=== PATIENT | female | born 1990 | race Caucasian/White ===

== ENCOUNTER 2017-02-19 16:38 | Emergency (ER) | payer MEDICAID ==
[2017-02-19 16:58] VITALS: TEMP 97.8
--- NOTE | 2017-02-19 17:25 | ED ---
Female Urogenital HPI - General Chief complaint: Urogenital Stated complaint: Cyst Time Seen by Provider: 02/19/17 17:04 Source: patient, RN notes reviewed Mode of arrival: ambulatory Limitations: no limitations - History of Present Illness Initial comments: Patient is a 26-year-old female presents to the emergency room for evaluation. Patient states she noticed a small cyst forming over her right labia on Monday. Patient states the swelling and pain got worse over the weekend. Patient states she went to [facility] she was sent here to have the area drained. Patient does states she has a history of abscesses. Patient denies any history of MRSA. Patient does state that she has been on clindamycin since Monday for strep throat. Patient states she's having 10 out of 10 pain at the area. Patient denies any drainage. Patient denies any history of Bartholin's cyst. Patient denies fevers or chills. - Related Data Home Medications Medication Instructions Recorded Confirmed Dextroamphetamine/Amphetamine 10 mg PO DAILY 02/19/17 02/19/17 [Adderall] Previous Rx's Medication Instructions Recorded HYDROcodone/APAP 5-325MG [Liberty 1 tab PO Q6HR PRN #12 tab 02/19/17 5-325] Allergies Allergy/AdvReac Type Severity Reaction Status Date / Time cephalexin monohydrate Allergy Rash/Hives Verified 02/19/17 17:03 [From Keflex] clarithromycin [From Biaxin] Allergy Rash/Hives Verified 02/19/17 17:03 sulfamethoxazole Allergy Rash/Hives Verified 02/19/17 17:03 [From Bactrim] trimethoprim [From Bactrim] Allergy Rash/Hives Verified 02/19/17 17:03 Review of Systems ROS Statement: Those systems with pertinent positive or pertinent negative responses have been documented in the HPI. ROS Other: All systems not noted in ROS Statement are negative. Past Medical History Additional Past Medical History / Comment(s): hx of Desmoid tumor. bronchitis, INSOMNIA History of Any Multi-Drug Resistant Organisms: None Reported Additional Past Surgical History / Comment(s): Desmoid tumor removed from R axilla area, Epidermoid cysts removed from face, neck and tailbone. Past Anesthesia/Blood Transfusion Reactions: No Reported Reaction Past Psychological History: No Psychological Hx Reported Smoking Status: Never smoker Past Alcohol Use History: None Reported Past Drug Use History: None Reported - Past Family History Mother Family Medical History: No Reported History General Exam - General Exam Comments Initial Comments: Sitting in exam room, no acute distress. Limitations: no limitations General appearance: alert, in no apparent distress Head exam: Present: atraumatic, normocephalic, normal inspection Eye exam: Present: normal appearance ENT exam: Present: normal exam Neck exam: Present: normal inspection Respiratory exam: Absent: respiratory distress External exam: Present: other (bartholin cyst over right labia minora ) Extremities exam: Present: normal inspection Back exam: Present: normal inspection Neurological exam: Present: alert, oriented X3, CN II-XII intact, normal gait Psychiatric exam: Present: normal affect, normal mood Course Vital Signs 02/19/17 16:56 Temperature 97.8 F Pulse Rate 89 Respiratory 20 Rate Blood Pressure 135/91 O2 Sat by Pulse 100 Oximetry Procedures - Incision & Drainage Consent Obtained: verbal consent Site: other (right labia minora) Size (cm): 2 Anesthetic Used: lidocaine 1% Amount (mLs): 4 I&D Cleaning Method: Betadine Sterile Field Used?: No Scalpel Used: #11 I&D Drainage Obtained: Pus, Blood Patient Tolerated Procedure: well, no complications Medical Decision Making - Medical Decision Making Patient is a 26-year-old female presents to the emergency room for evaluation of Bartholin's cyst. Cyst was incised and drained. No complications during procedure. Advised patient to follow up with POULTICE MACHINE OPERATOR. Patient will be sent home with pain medications. Patient is already on clindamycin. Patient states she understands everything that was discussed with her. Return parameters discussed. Disposition Clinical Impression: Bartholin cyst Disposition: HOME SELF-CARE Condition: Good Instructions: Bartholin Cyst (ED) Additional Instructions: Warm sits baths. Take ibuprofen as needed for pain. Take Liberty as needed for severe pain. Please follow-up with POULTICE MACHINE OPERATOR in 24 hours. If any new symptom arises or symptoms worsen, return to ER as soon as possible. Prescriptions: HYDROcodone/APAP 5-325MG [Liberty 5-325] 1 tab PO Q6HR PRN #12 tab PRN Reason: Pain Referrals: Tayla Perdomo MD [Primary Care Provider] - 1-2 days Time of Disposition: 17:45
[2017-02-19 17:51] VITALS: BP 134/77; PULSE 95; RESP 18
== END 2017-02-19 17:51 | disposition home or self-care (01) ==
LOC: EC 16:38
DX: N75.0 Cyst of Bartholin's gland (principal); Z88.2 Allergy status to sulfonamides; Z88.1 Allergy status to other antibiotic agents; Z79.899 Other long term (current) drug therapy
CPT/HCPCS: 56420; 99282

== ENCOUNTER → 2017-05-26 | Outpatient (CLI) | payer MEDICAID ==
[2017-05-26 21:15] LABS: Basophils % (A) 1 %; CH 27.8; Eosinophils # (A) 0.1 k/uL (0-0.7); Eosinophils % (A) 2 %; HCT 40.4 % (34.0-46.0); HDW 2.48; HGB 12.8 gm/dL (11.4-16.0); Luc # (Auto) 0.12; Luc % (Auto) 2; Lymphocytes # (A) 1.7 k/uL (1.0-4.8); Lymphocytes % (A) 30 %; MCH 27.6 pg (25.0-35.0); MCHC 31.6 g/dL (31.0-37.0); MCV 87.4 fL (80.0-100.0); Mean Platelet Volume 7.8; Monocytes # (A) 0.3 k/uL (0-1.0); Monocytes % (A) 5 %; Neutrophils # (A) 3.5 k/uL (1.3-7.7); Neutrophils % (A) 61 %; RBC 4.62 m/uL (3.80-5.40); RDW 13.2 % (11.5-15.5); WBC 5.8 k/uL (3.8-10.6); WBC (Perox) 5.98
[2017-05-26 21:19] LABS: ALT 23 U/L (9-52); AST 31 U/L (14-36); Alkaline Phosphatase 78 U/L (38-126); Anion Gap 9 mmol/L; Blood Urea Nitrogen 7 mg/dL (7-17); Calcium 9.1 mg/dL (8.4-10.2); Carbon Dioxide 22 mmol/L (22-30); Chloride 108 mmol/L (98-107); Cholesterol 182 mg/dL (<200); Glucose 91 mg/dL (74-99); HDL Cholesterol 71 mg/dL (40-60); Non-African American GFR(MDRD) >60 (>60 ml/min/1.73 sqM); Potassium 4.3 mmol/L (3.5-5.1); Sodium 139 mmol/L (137-145); Total Bilirubin 0.6 mg/dL (0.2-1.3); Total Protein 6.6 g/dL (6.3-8.2)
[2017-05-26 22:05] LABS: Vitamin B12 389 pg/mL (239-931)
== END | disposition home or self-care (01) ==
LOC: MMGSC 10:26
PROVIDERS: ATTEND Family Medicine
DX: Z00.00 Encounter for general adult medical examination without abnormal findings (principal); R53.83 Other fatigue
CPT/HCPCS: 36415; 80053; 80061; 82306; 82607; 84439; 84443; 85025

== ENCOUNTER → 2018-09-19 | Outpatient (CLI) | payer MEDICAID ==
[2018-09-19 16:33] LABS: Basophils % (A) 1 %; Eosinophils # (A) 0.1 k/uL (0-0.7); Eosinophils % (A) 2 %; HCT 39.9 % (34.0-46.0); Lymphocytes # (A) 1.3 k/uL (1.0-4.8); Lymphocytes % (A) 28 %; MCH 28.3 pg (25.0-35.0); MCHC 32.6 g/dL (31.0-37.0); MCV 86.7 fL (80.0-100.0); Mean Platelet Volume 6.9; Monocytes # (A) 0.4 k/uL (0-1.0); Monocytes % (A) 8 %; Neutrophils # (A) 2.7 k/uL (1.3-7.7); Neutrophils % (A) 59 %; Platelet Count 303 k/uL (150-450); RDW 13.6 % (11.5-15.5); WBC 4.7 k/uL (3.8-10.6)
== END | disposition home or self-care (01) ==
LOC: LABPAT 15:24
PROVIDERS: ATTEND Obstetrics & Gynecology
DX: Z01.812 Encounter for preprocedural laboratory examination (principal)
CPT/HCPCS: 36415; 85025

== ENCOUNTER 2018-10-04 06:53 | Day surgery (SDC) | payer MEDICAID ==
[2018-10-03 09:21] VITALS: BMI 36.6
--- NOTE | 2018-10-04 06:35 | P.HPOB ---
History of Present Illness H&P Date: 10/04/18 Chief Complaint: recurrent bartholin gland cyst 28 year old G0 presents for marsupialization of bartholin cyst that keeps filling with pus. I have drained it in the office 3 times. Review of Systems All systems: negative Constitutional: Denies chills, Denies fever Eyes: denies blurred vision, denies pain Ears, nose, mouth and throat: Denies headache, Denies sore throat Cardiovascular: Denies chest pain, Denies shortness of breath Respiratory: Denies cough Gastrointestinal: Denies abdominal pain, Denies diarrhea, Denies nausea, Denies vomiting Genitourinary: Denies dysuria, Denies hematuria Musculoskeletal: Denies myalgias Integumentary: Denies pruritus, Denies rash Neurological: Denies numbness, Denies weakness Psychiatric: Denies anxiety, Denies depression Endocrine: Denies fatigue, Denies weight change Past Medical History Additional Past Medical History / Comment(s): BARTHOLIN CYST, 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 History of Any Multi-Drug Resistant Organisms: None Reported Additional Past Surgical History / Comment(s): Desmoid tumor removed from R axilla area, Epidermoid cysts removed from face, neck and tailbone. Past Anesthesia/Blood Transfusion Reactions: No Reported Reaction Past Psychological History: No Psychological Hx Reported Smoking Status: Never smoker Past Alcohol Use History: None Reported Past Drug Use History: None Reported - Past Family History Mother Family Medical History: No Reported History Medications and Allergies Home Medications Medication Instructions Recorded Confirmed Type Dextroamphetamine/Amphetamine 15 mg PO DAILY 10/03/18 10/03/18 History [Adderall] Zylet 1 drop LEFT EYE BID 10/03/18 History clonazePAM [KlonoPIN] 0.5 mg PO DAILY PRN 10/03/18 10/03/18 History metFORMIN HCL [Glucophage] 500 mg PO DAILY 10/03/18 10/03/18 History Allergies Allergy/AdvReac Type Severity Reaction Status Date / Time cephalexin monohydrate Allergy Rash/Hives Verified 10/03/18 09:15 [From Keflex] clarithromycin [From Biaxin] Allergy Rash/Hives Verified 10/03/18 09:15 sulfamethoxazole Allergy Rash/Hives Verified 10/03/18 09:15 [From Bactrim] trimethoprim [From Bactrim] Allergy Rash/Hives Verified 10/03/18 09:15 Exam Osteopathic Statement: *. No significant issues noted on an osteopathic structural exam other than those noted in the History and Physical/Consult. Intake and Output 10/03/18 10/03/18 10/04/18 14:59 22:59 06:59 Other: Weight 90.718 kg Heart: RRR Lungs: CTAB Abdomen: soft, nontender Extremeties: neg rose's Assessment and Plan (1) Bartholin gland cyst Status: Acute Code(s): N75.0 - CYST OF BARTHOLIN'S GLAND SNOMED Code(s): 12751154 Plan: 1. marsupialization of bartholin gland cyst
[~2018-10-04 06:53] MED LIST: CLINDAMYCIN 900 MG in DEXTROSE 5% IN WATER 50 ML IVPB ONE; DEXAMETHASONE SOD PHOSPHATE 10 MG/ML 1 ML VIAL IV ONE; GENTAMICIN 330 MG in SODIUM CHLORIDE 0.9% 100 ML IVPB ONE; LACTATED RINGERS 1,000 ML IV SCH; LIDOCAINE 1% 20 ML VIAL (10MG/ML) FOR IV START INTRADERMA PRN; MIDAZOLAM (PF) 2 MG/2 ML VIAL IV PRN; ONDANSETRON 4 MG/2 ML VIAL IVP ONE
[2018-10-04 07:28] LABS: Glucose,Whole Blood 100 mg/dL (75-99)
[2018-10-04] MEDS ORDERED: PROPOFOL 10 MG/ML 20 ML VIAL IV ONE (07:54)
[2018-10-04] MEDS ORDERED: MIDAZOLAM 2 MG/2 ML VIAL ONE (07:54)
[2018-10-04] MEDS ORDERED: KETOROLAC 30 MG/ML 1 ML VIAL ONE (07:54)
[2018-10-04] MEDS ORDERED: fentaNYL (PF) 50 MCG/ML 2 ML AMP ONE (07:54)
[2018-10-04] MEDS ORDERED: LIDOCAINE 1% INJ 10MG/ML (20 ML MDV) ONE (07:54)
[2018-10-04] MEDS ORDERED: LIDOCAINE 1%-EPI 1:100,000 20 ML VIAL SUBMUCOSAL ONE ×2 (08:17)
--- NOTE | 2018-10-04 08:44 | P.OP ---
Date of Procedure: 10/04/18 Preoperative Diagnosis: 1. Recurrent Bartholin gland cyst Postoperative Diagnosis: 1. Same Procedure(s) Performed: Marsupialization of a Bartholin's gland cyst Anesthesia: MAC Surgeon: Joceline Gant Estimated Blood Loss (ml): 2 IV fluids (ml): 200 Pathology: other (Part of cyst wall from right labia) Condition: stable Disposition: PACU Operative Findings: Very small cyst in the right labia Description of Procedure: Patient is taken the operating room where general anesthesia was obtained without difficulty. She is prepped and draped in normal sterile fashion in dorsal lithotomy position, legs placed in candycane stirrups. The area of the cyst was found by noting the puncture shane from the previous times and I have drain the cyst. It is not actively inflamed. 1% lidocaine with epinephrine was injected just beneath the epidermis. A 15 blade was used to make a small incision on the right labia. The cyst was seen and opened with scalpel and a hemostat. A piece of the cyst wall was taken with Metzenbaums. The cyst wall was sewn open to the edges of the epidermis with 3-0 Vicryl interrupted stitches. Patient tolerated procedure well, sponge and instrument counts correct 2. She is taken to recovery in stable condition.
[2018-10-04] MEDS: fentaNYL (PF) 50 MCG/ML 2 ML AMP IV PRN ×2 (08:52→09:05)
[2018-10-04 08:58] VITALS: TEMP 97.4
[2018-10-04 09:05] VITALS: PULSE 81
[2018-10-04 09:49] VITALS: BP 114/74; RESP 16
== END 2018-10-04 10:19 | disposition home or self-care (01) ==
LOC: OR 06:53
PROVIDERS: ATTEND Obstetrics & Gynecology
DX: N75.0 Cyst of Bartholin's gland (principal); E28.2 Polycystic ovarian syndrome; F39 Unspecified mood [affective] disorder; Z79.84 Long term (current) use of oral hypoglycemic drugs; Z79.899 Other long term (current) drug therapy; Z88.1 Allergy status to other antibiotic agents; Z88.2 Allergy status to sulfonamides
CPT/HCPCS: 81025; 88304; 56440; J2250; J1100; J2405; J2001; J3010; J1885; J1580; J2704

== ENCOUNTER → 2018-12-17 | Outpatient (CLI) | payer MEDICAID ==
[2018-12-17 17:50] LABS: RNP 0.4 AI; Scleroderma SC-70 Ab <0.2 AI
== END | disposition home or self-care (01) ==
LOC: LABWHC1 10:35
DX: Z12.89 Encounter for screening for malignant neoplasm of other sites (principal); Z80.8 Family history of malignant neoplasm of other organs or systems
CPT/HCPCS: 36415; 82085; 82550; 86235

== ENCOUNTER → 2019-01-01 | Outpatient (CLI) | payer MEDICAID | LOC: LABWHC1 14:30 | PROVIDERS: ATTEND Dermatology | DX: Z80.8 Family history of malignant neoplasm of other organs or systems (principal) | CPT/HCPCS: 36415 ==

== ENCOUNTER → 2019-01-18 | Outpatient (CLI) | payer MEDICAID ==
[2019-01-18 15:03] LABS: HCT 39.4 % (34.0-46.0); HGB 12.5 gm/dL (11.4-16.0); MCH 27.6 pg (25.0-35.0); MCHC 31.7 g/dL (31.0-37.0); MCV 87.1 fL (80.0-100.0); Mean Platelet Volume 7.1; Platelet Count 308 k/uL (150-450); RBC 4.53 m/uL (3.80-5.40); RDW 14.9 % (11.5-15.5); WBC 7.7 k/uL (3.8-10.6)
[2019-01-18 18:53] LABS: Albumin 3.8 g/dL (3.80-4.90); Anion Gap 5.8 mmol/L (4.00-12.00); Calcium 8.9 mg/dL (8.7-10.3); Carbon Dioxide 25.2 mmol/L (21.6-31.8); Globulin 1.9 g/dL (1.6-3.3); Potassium 3.9 mmol/L (3.5-5.5); Total Bilirubin 0.4 mg/dL (0.2-1.2); Total Protein 5.7 g/dL (6.2-8.2)
== END | disposition home or self-care (01) ==
LOC: LABWHC1 14:36
PROVIDERS: ATTEND Dermatology
DX: M33.90 Dermatopolymyositis, unspecified, organ involvement unspecified (principal)
CPT/HCPCS: 36415; 80053; 82955; 85027

== ENCOUNTER → 2019-04-10 | Outpatient (CLI) | payer MEDICAID ==
[2019-04-10 23:28] LABS: Cardiolipin Ab IgG Interp NEGATIVE (NEGATIVE); Cardiolipin Ab IgM Interp NEGATIVE (NEGATIVE); Cardiolipin IgA Antibody <0.5 U/mL; Cardiolipin IgM Antibody 1.3 U/mL
[2019-04-10 23:39] LABS: Hepatitis C IgG Antibody Non-Reactive (Non-Reactive)
[2019-04-11 01:20] LABS: Protein, Total 6.2 g/dL (6.2-8.2)
[2019-04-11 01:42] LABS: Amylase 65 U/L (23-121); Immunoglobulin E 2.77 IU/mL (0.00-114.00); Rheumatoid Factor 5 IU/mL (0-15)
[2019-04-11 02:13] LABS: C Reactive Protein <0.4 mg/dL (0.0-0.8)
[2019-04-11 12:52] LABS: Albumin 3.86 g/dL (3.80-4.90); Gamma Globulin 0.75 g/dL (0.70-1.50)
[2019-04-11 13:17] LABS: APTT 33 Sec(s) (<43); Dilute Russell Viper Venom 35 Sec(s) (<44)
[2019-04-11 14:06] LABS: Immunoglobulin M 89.7 mg/dL (40.0-280.0)
[2019-04-11 14:25] LABS: Protein S Antigen 106 % (50 - 140)
== END | disposition home or self-care (01) ==
LOC: LABWHC1 16:20
PROVIDERS: ATTEND Dermatology
DX: M31.9 Necrotizing vasculopathy, unspecified (principal)
CPT/HCPCS: 36415; 82108; 82150; 82585; 82784; 82785; 83090; 83690; 84165; 85303; 85305; 85613; 85652; 85730; 86140; 86146; 86147; 86431; 86803; 87340

== ENCOUNTER → 2019-04-16 | Outpatient (CLI) | payer MEDICAID ==
[2019-04-16 16:11] LABS: D-Dimer 1.79 mg/L FEU (<0.60); INR 0.9 (<1.2); Partial Thromboplastin Time 22.1 sec (22.0-30.0); Prothrombin Time 9.5 sec (9.0-12.0)
[2019-04-17 11:47] LABS: Anti-Thrombin III Antigen 93 % (80 - 120)
[2019-04-17 11:48] LABS: Protein S Antigen 94 % (50 - 140)
[2019-04-19 14:34] LABS: Protein C Antigen 136 % (72-160)
[2019-04-19 22:35] LABS: Fibrinogen Antigen 319 mg/dL (180-350)
== END | disposition home or self-care (01) ==
LOC: LABWHC1 14:44
PROVIDERS: ATTEND Dermatology
DX: M31.9 Necrotizing vasculopathy, unspecified (principal); D68.61 Antiphospholipid syndrome
CPT/HCPCS: 36415; 81240; 81241; 83970; 84450; 84460; 84520; 85300; 85301; 85302; 85303; 85305; 85306; 85379; 85384; 85385; 85415; 85420; 85610; 85730

== ENCOUNTER 2019-04-18 15:21 | Emergency (ER) | payer MEDICAID ==
[2019-04-18 15:31] VITALS: BP 128/84; PULSE 98; RESP 18; TEMP 98.5
--- NOTE | 2019-04-18 16:02 | ED ---
General Adult HPI - General Chief complaint: Recheck/Abnormal Lab/Rx Stated complaint: abn labs Time Seen by Provider: 04/18/19 15:37 Source: patient, RN notes reviewed Mode of arrival: ambulatory Limitations: no limitations - History of Present Illness Initial comments: 28-year-old female with a past medical history of bronchitis, insomnia, desmoid tumor presents to the emergency department for a chief complaint of abnormal labs. 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 States she is about to be put on many medications for this including steroids and methotrexate. States her casino worker did blood work and she had an elevated d-dimer of 1.39. She states that her casino worker wanted her to be evaluated for blood clots. Patient denies any new shortness of breath, does admit to some mild exertional shortness of breath. Denies chest pain.Patient has no other complaints at this time including shortness of breath, chest pain, abdominal pain, nausea or vomiting, headache, or visual changes. - Related Data Home Medications Medication Instructions Recorded Confirmed Dextroamphetamine/Amphetamine 15 mg PO DAILY 10/03/18 12/01/18 [Adderall] clonazePAM [KlonoPIN] 0.5 mg PO DAILY PRN 10/03/18 12/01/18 metFORMIN HCL [Glucophage] 500 mg PO DAILY 10/03/18 12/01/18 Clindamycin HCl 300 mg PO DAILY 12/01/18 12/01/18 Topiramate [Topamax] 50 mg PO DAILY 12/01/18 12/01/18 diphenhydrAMINE [Benadryl] 25 mg PO DAILY PRN 12/01/18 12/01/18 Previous Rx's Medication Instructions Recorded predniSONE 20 mg PO BID #9 tab 12/01/18 Allergies Allergy/AdvReac Type Severity Reaction Status Date / Time cephalexin monohydrate Allergy Rash/Hives Verified 04/18/19 15:31 [From Keflex] clarithromycin [From Biaxin] Allergy Rash/Hives Verified 04/18/19 15:31 clindamycin Allergy Swelling Verified 04/18/19 15:31 sulfamethoxazole Allergy Rash/Hives Verified 04/18/19 15:31 [From Bactrim] trimethoprim [From Bactrim] Allergy Rash/Hives Verified 04/18/19 15:31 Review of Systems ROS Statement: Those systems with pertinent positive or pertinent negative responses have been documented in the HPI. ROS Other: All systems not noted in ROS Statement are negative. Past Medical History Additional Past Medical History / Comment(s): hx of Desmoid tumor. bronchitis, INSOMNIA, dermatomyositis History of Any Multi-Drug Resistant Organisms: None Reported Additional Past Surgical History / Comment(s): Desmoid tumor removed from R axi lla area, Epidermoid cysts removed from face, neck and tailbone Past Anesthesia/Blood Transfusion Reactions: No Reported Reaction Past Psychological History: No Psychological Hx Reported Smoking Status: Never smoker Past Alcohol Use History: None Reported Past Drug Use History: None Reported - Past Family History Mother Family Medical History: No Reported History General Exam Limitations: no limitations General appearance: alert, in no apparent distress Head exam: Present: atraumatic, normocephalic, normal inspection Eye exam: Present: normal appearance, PERRL, EOMI. Absent: scleral icterus, conjunctival injection, periorbital swelling ENT exam: Present: normal exam, mucous membranes moist Neck exam: Present: normal inspection, full ROM. Absent: tenderness, meningismus, lymphadenopathy Respiratory exam: Present: normal lung sounds bilaterally. Absent: respiratory distress, wheezes, rales, rhonchi, stridor Cardiovascular Exam: Present: regular rate, normal rhythm, normal heart sounds. Absent: systolic murmur, diastolic murmur, rubs, gallop, clicks GI/Abdominal exam: Present: soft, normal bowel sounds. Absent: distended, tenderness, guarding, rebound, rigid Skin exam: Present: erythema (Mild erythema generalized to patient's skin.) Course Vital Signs 04/18/19 15:28 Temperature 98.5 F Pulse Rate 98 Respiratory 18 Rate Blood Pressure 128/84 O2 Sat by Pulse 100 Oximetry Medical Decision Making - Medical Decision Making 28-year-old female with a past medical history bronchitis, insomnia, does play tumor presents for a chief complaint of abnormal labs. She was diagnosed in November with dermatomyositis. She had an elevated d-dimer outpatient ordered by her casino worker. She was sent in by her casino worker be evaluated for blood clots. Patient admits to exertional shortness of breath but states is chronic. No new chest pain or shortness of breath. Vitals are stable. I had a lengthy discussion with patient that elevated d-dimer was likely secondary to inflammatory process of dermatomyositis. However patient does prefer to have the CAT scan done at this time to rule out pulmonary embolism. Negative hCG was obtained and CTA was ordered. CTA showed negative exam. No evidence of pulmonary wasn't. Results were communicated to patient. Recommended following up with primary care dermatology in 1-2 days. Recommended returning here if she has any worsening symptoms. - Lab Data Lab Results 04/18/19 04/18/19 Range/Units 16:05 16:05 Urine Color Yellow Urine Appearance Clear (Clear) Urine pH 5.5 (5.0-8.0) Ur Specific [place] 1.024 (1.001-1.035) Urine Protein 1+ H (Negative) Urine Glucose (UA) Negative (Negative) Urine Ketones Trace H (Negative) Urine Blood Negative (Negative) Urine Nitrite Negative (Negative) Urine Bilirubin Negative (Negative) Urine Urobilinogen <2.0 (<2.0) mg/dL Ur Leukocyte Esterase Negative (Negative) Urine RBC 1 (0-5) /hpf Urine WBC 2 (0-5) /hpf Ur Squamous Epith Cells 2 (0-4) /hpf Urine Bacteria Rare H (None) /hpf Urine Mucus Occasional H (None) /hpf Urine HCG, Qual Not Detected (Not Detectd) Disposition Clinical Impression: Elevated d-dimer Disposition: HOME SELF-CARE Condition: Good Instructions (If sedation given, give patient instructions): Normal Exam (ED) Additional Instructions: Please follow up with primary care in 1-2 days. follow up with dermatology as well. Return to the emergency department if you develop any other worsening symptoms. Is patient prescribed a controlled substance at d/c from ED?: No Referrals: Tayla Perdomo MD [Primary Care Provider] - 1-2 days Time of Disposition: 17:37
[2019-04-18 16:16] LABS: Appearance,Urine Clear (Clear); Bacteria,Urine Rare /hpf; Bilirubin,Urine Negative (Negative); Blood,Urine Negative (Negative); Color,Urine Yellow; Glucose,Urine (UA) Negative (Negative); Ketones,Urine Trace (Negative); Leukocyte Esterase,Urine Negative (Negative); Mucus,Urine Occasional /hpf; Nitrite,Urine Negative (Negative); PH, Urine 5.5 (5.0-8.0); Protein,Urine 1+ (Negative); RBC,Urine 1 /hpf (0-5); Specific Gravity,Urine 1.024 (1.001-1.035); Squamous Epithelial Cell,Urine 2 /hpf (0-4); Urobilinogen,Urine <2.0 mg/dL (<2.0); WBC,Urine 2 /hpf (0-5)
--- NOTE | 2019-04-18 16:58 | CT ---
EXAMINATION TYPE: CT chest angio for PE DATE OF EXAM: 04/18/2019 COMPARISON: None HISTORY: Elevated d-dimer. CT DLP: 318.1 mGycm Automated exposure control for dose reduction was used. CONTRAST: CT Chest for pulmonary embolism performed with with IV Contrast, patient injected with 71 mL of Isovu e 370. FINDINGS: There are 3-D post processed images. There is no mediastinal adenopathy. Thoracic aorta is intact without evidence of aneurysm or dissecti on. There are no hilar masses. There is normal contrast opacification of the pulmonary arteries. I se e no filling defect. The lungs are clear of infiltrate. There is no pleural effusion. There is no evidence of a pulmonary mass. The bony thorax appears intact. I see no bony destructive process. IMPRESSION: Negative exam. No evidence of pulmonary embolism.
== END 2019-04-18 18:00 | disposition home or self-care (01) ==
LOC: EC 15:21
DX: R79.89 Other specified abnormal findings of blood chemistry (principal); M33.90 Dermatopolymyositis, unspecified, organ involvement unspecified; Z79.84 Long term (current) use of oral hypoglycemic drugs; Z79.899 Other long term (current) drug therapy; Z88.1 Allergy status to other antibiotic agents; Z88.2 Allergy status to sulfonamides
CPT/HCPCS: 81001; 81025; 87086; 71275; 99284; Q9967

== ENCOUNTER → 2020-09-16 | Outpatient (CLI) | payer MEDICAID ==
--- NOTE | 2020-09-17 08:52 | MM ---
Reason for exam: screening (asymptomatic). History: Benign excisional biopsy of the right breast, 2011. Physical Findings: A clinical breast exam by your physician is recommended on an annual basis and results should be correlated with mammographic findings. MG 3D Screening Mammo W/Cad Bilateral CC and MLO view(s) were taken. No prior studies available for comparison. The breast tissue is heterogeneously dense. This may lower the sensitivity of mammography. Asymmetric breast tissue right upper outer quadrant posterior position and left breast posterior lower inner quadrant. More focal asymmetry left MLO view at this level ASSESSMENT: Incomplete: need additional imaging evaluation, BI-RAD 0 RECOMMENDATION: Ultrasound of the left breast. [facility] will attempt to contact patient to return for ultrasound.
== END | disposition home or self-care (01) ==
LOC: RADMAMWWP 09:40
PROVIDERS: ATTEND Family Medicine
DX: Z12.31 Encounter for screening mammogram for malignant neoplasm of breast (principal)
CPT/HCPCS: 77063; 77067

== ENCOUNTER → 2020-09-21 | Outpatient (CLI) | payer MEDICAID ==
--- NOTE | 2020-09-21 10:58 | USB ---
Reason for exam: additional evaluation requested from abnormal screening. History: Benign excisional biopsy of the right breast, 2011. Physical Findings: Nurse Summary: all soft, nodular, movable (nurse ts). US Breast Workup Limited LT Left limited breast ultrasound including focal area of concern, retroareolar and axilla demonstrates dense tissue noted. Scanned 4-8 o'clock. Findings on mammogram likely represent global asymmetry, 6 month follow up can demonstrated stability. These results were verbally communicated with the patient and result sheet given to the patient on 09/21/20. ASSESSMENT: Probably benign, BI-RAD 3 RECOMMENDATION: Follow-up diagnostic mammogram of the left breast in 6 months.
== END | disposition home or self-care (01) ==
LOC: RADUSWWP 09:40
PROVIDERS: ATTEND Family Medicine
DX: R92.8 Other abnormal and inconclusive findings on diagnostic imaging of breast (principal)

== ENCOUNTER → 2021-02-08 | Outpatient (CLI) | payer MEDICAID ==
[2021-02-08 18:50] LABS: ALT 38 U/L (8-44); AST 44 U/L (13-35); Albumin/Globulin Ratio 0.82 (1.60-3.17); Alkaline Phosphatase 83 U/L (41-126); Bilirubin, Conjugated <0.20 mg/dL (0.20-0.40); Globulin 4.9 g/dL (1.6-3.3); Total Bilirubin 0.2 mg/dL (0.2-1.2); Total Protein 8.9 g/dL (6.2-8.2)
== END | disposition home or self-care (01) ==
LOC: LABWHC1 07:37
PROVIDERS: ATTEND Internal Medicine
DX: M33.90 Dermatopolymyositis, unspecified, organ involvement unspecified (principal); Z51.81 Encounter for therapeutic drug level monitoring
CPT/HCPCS: 36415; 80076

== ENCOUNTER → 2021-03-22 | Outpatient (CLI) | payer MEDICAID ==
--- NOTE | 2021-03-23 07:54 | MM ---
Reason for exam: additional evaluation requested from abnormal screening. Last mammogram was performed 6 months ago. History: Benign excisional biopsy of the right breast, 2011. Physical Findings: Nurse did not find any significant physical abnormalities on exam. MG 3D Diag Mammo W/Cad LT CC with magnification, MLO with magnification, and ML view(s) were taken of the left breast. Prior study comparison: September 16, 2020, bilateral MG 3d screening mammo w/cad. There are vascular calcifications left upper outer quadrant. These results were verbally communicated with the patient and result sheet given to the patient on 03/22/21. ASSESSMENT: Benign, BI-RAD 2 RECOMMENDATION: Routine screening mammogram of both breasts at age 38. Manage on a clinical basis with regard to vascular calcifications in the young patient.
== END | disposition home or self-care (01) ==
LOC: RADMAMWWP 14:59
PROVIDERS: ATTEND Family Medicine
DX: R92.1 Mammographic calcification found on diagnostic imaging of breast (principal)
CPT/HCPCS: 77061; 77065

== ENCOUNTER → 2021-03-30 | Outpatient (CLI) | payer MEDICAID ==
[2021-03-31 05:59] LABS: Hepatitis A Antibody IgM Non-Reactive (Non-Reactive); Hepatitis B Core IgM Non-Reactive (Non-Reactive); Hepatitis B Surface Antigen Non-Reactive (Non-Reactive); Hepatitis C IgG Antibody Non-Reactive (Non-Reactive)
[2021-03-31 06:15] LABS: Herpes simplex I and/or II IgM 0.2 INDEX (<=0.90); Herpes simplex IgG I Ab 12.1 (< or = 0.90); Herpes simplex IgG II Ab 1.68 (< or = 0.90)
== END | disposition home or self-care (01) ==
LOC: LABWHC1 11:54
PROVIDERS: ATTEND Obstetrics & Gynecology
DX: Z11.3 Encounter for screening for infections with a predominantly sexual mode of transmission (principal)
CPT/HCPCS: 36415; 80074; 86694; 86695; 86696

== ENCOUNTER → 2021-04-26 | Outpatient (CLI) | payer MEDICAID ==
[2021-04-26 19:04] LABS: Basophils # (A) 0.03 X 10*3/uL (0.00-0.10); Basophils % (A) 0.7 %; Eosinophils % (A) 2.2 %; HGB 11.2 g/dL (12.0-15.0); Lymphocytes # (A) 1.25 X 10*3/uL (0.90-5.00); Lymphocytes % (A) 27.8 %; MCHC 30.3 g/dL (32.0-37.0); MCV 85.8 fL (80.0-97.0); Mean Platelet Volume 10.9 fL (9.5-12.2); Monocytes # (A) 0.34 X 10*3/uL (0.20-1.00); Monocytes % (A) 7.6 %; Neutrophils # (A) 2.76 X 10*3/uL (1.80-7.70); Neutrophils % (A) 61.3 %; Platelet Count 375 X 10*3/uL (140-440); RBC 4.31 X 10*6/uL (4.10-5.20); RDW 14.8 % (11.5-14.5)
[2021-04-26 23:40] LABS: ALT 22 U/L (8-44); AST 31 U/L (13-35); African American GFR (CKD) 139.8 (60.0-200.0); Alkaline Phosphatase 69 U/L (41-126); Bilirubin, Conjugated <0.20 mg/dL (0.20-0.40); Non-African American GFR(CKD) 120.6 (60.0-200.0); Total Bilirubin 0.3 mg/dL (0.2-1.2); Total Protein 6.9 g/dL (6.2-8.2)
== END | disposition home or self-care (01) ==
LOC: LABWHC1 13:07
PROVIDERS: ATTEND Internal Medicine
DX: M33.90 Dermatopolymyositis, unspecified, organ involvement unspecified (principal); D84.9 Immunodeficiency, unspecified; Z51.81 Encounter for therapeutic drug level monitoring
CPT/HCPCS: 36415; 80076; 82565; 85025

== ENCOUNTER 2021-05-31 02:42 | Emergency (ER) | payer MEDICAID ==
[2021-05-31 03:18] VITALS: BP 125/83; PULSE 96; RESP 20; TEMP 99.1
[2021-05-31] MEDS ORDERED: CLINDAMYCIN 150 MG CAP PO STA (04:05)
[2021-05-31] MEDS ORDERED: AMOXIC-POT CLAV 875-125MG 1 EACH TAB PO STA (04:05)
[2021-05-31] MEDS ORDERED: AMOXIC-POT CLAV 875MG STARTER PACK 2 TAB BTL PO STA (04:05)
--- NOTE | 2021-05-31 04:07 | ED ---
Skin/Abscess/FB HPI - General Chief complaint: Skin/Abscess/Foreign Body Stated complaint: cyst Time Seen by Provider: 05/31/21 03:44 Source: patient, RN notes reviewed, old records reviewed Mode of arrival: ambulatory Limitations: no limitations - History of Present Illness Initial comments: This is a 30-year-old female presented today for evaluation of abscess groin abscess. Patient states she has no history of Bartholin's cyst and believe this is a recurrence of a Bartholin's cyst. Patient denies any fevers is having severe pain in her groin area with difficulty on ambulation and walking MD complaint: abscess/boil -: days(s) Location: genitals Severity: severe Severity scale (1-10): 10 Quality: aching Consistency: constant Improves with: none Worsens with: none Context: none Associated symptoms: denies other symptoms - Related Data Home Medications Medication Instructions Recorded Confirmed Dextroamphetamine/Amphetamine 15 mg PO DAILY 10/03/18 12/01/18 [Adderall] clonazePAM [KlonoPIN] 0.5 mg PO DAILY PRN 10/03/18 12/01/18 metFORMIN HCL [Glucophage] 500 mg PO DAILY 10/03/18 12/01/18 Clindamycin HCl 300 mg PO DAILY 12/01/18 12/01/18 Topiramate [Topamax] 50 mg PO DAILY 12/01/18 12/01/18 diphenhydrAMINE [Benadryl] 25 mg PO DAILY PRN 12/01/18 12/01/18 Previous Rx's Medication Instructions Recorded predniSONE [Deltasone] 20 mg PO BID #9 tab 12/01/18 Amoxic-Pot Clav 875-125Mg 1 tab PO Q12HR #20 tablet 05/31/21 [Augmentin 875-125] clindamycin HCL [Cleocin] 300 mg PO Q6HR #40 cap 05/31/21 Allergies Allergy/AdvReac Type Severity Reaction Status Date / Time cephalexin monohydrate Allergy Rash/Hives Verified 05/31/21 03:14 [From Keflex] clarithromycin [From Biaxin] Allergy Rash/Hives Verified 05/31/21 03:14 sulfamethoxazole Allergy Rash/Hives Verified 05/31/21 03:14 [From Bactrim] trimethoprim [From Bactrim] Allergy Rash/Hives Verified 05/31/21 03:14 Review of Systems ROS Statement: Those systems with pertinent positive or pertinent negative responses have been documented in the HPI. ROS Other: All systems not noted in ROS Statement are negative. Past Medical History Additional Past Medical History / Comment(s): hx of Desmoid tumor. bronchitis, INSOMNIA, dermatomyositis History of Any Multi-Drug Resistant Organisms: None Reported Additional Past Surgical History / Comment(s): Desmoid tumor removed from R axilla area, Epidermoid cysts removed from face, neck and tailbone Past Anesthesia/Blood Transfusion Reactions: No Reported Reaction Past Psychological History: No Psychological Hx Reported Smoking Status: Never smoker Past Alcohol Use History: None Reported Past Drug Use History: None Reported - Past Family History Mother Family Medical History: No Reported History General Exam - General Exam Comments Initial Comments: Significant Bartholin gland cyst, abscess Limitations: no limitations General appearance: alert, in no apparent distress Head exam: Present: atraumatic, normocephalic, normal inspection Eye exam: Present: normal appearance, PERRL, EOMI. Absent: scleral icterus, conjunctival injection, periorbital swelling ENT exam: Present: normal exam, mucous membranes moist Neck exam: Present: normal inspection. Absent: tenderness, meningismus, lymphadenopathy Respiratory exam: Present: normal lung sounds bilaterally. Absent: respiratory distress, wheezes, rales, rhonchi, stridor Cardiovascular Exam: Present: regular rate, normal rhythm, normal heart sounds. Absent: systolic murmur, diastolic murmur, rubs, gallop, clicks GI/Abdominal exam: Present: soft, normal bowel sounds. Absent: distended, tenderness, guarding, rebound, rigid Extremities exam: Present: normal inspection, full ROM, normal capillary refill. Absent: tenderness, pedal edema, joint swelling, calf tenderness Back exam: Present: normal inspection Neurological exam: Present: alert, oriented X3, CN II-XII intact Psychiatric exam: Present: normal affect, normal mood Skin exam: Present: warm, dry, intact, normal color. Absent: rash Course Vital Signs 05/31/21 03:12 Temperature 99.1 F Pulse Rate 96 Respiratory 20 Rate Blood Pressure 125/83 O2 Sat by Pulse 99 Oximetry - Reevaluation(s) Reevaluation #1: Medical record is reviewed Patient symptoms are improving here in the emergency department Patient is informed of results and questions answered Patient is in no acute distress Procedures - Incision & Drainage Consent Obtained: verbal consent Site: vulva/vagina Anesthetic Used: lidocaine 1%, with epi Sterile Field Used?: Yes Scalpel Used: #11 Needle Aspiration Performed?: Yes Irrigation Performed?: No I&D Drainage Obtained: Pus Culture Obtained?: No Patient Tolerated Procedure: well Medical Decision Making - Medical Decision Making 30 female with significant Bartholin's gland cyst, abscess drainage in the ER will place on antibiotics to follow up with OB regarding further treatment of her Bartholin's gland cyst Disposition Clinical Impression: Bartholin gland cyst, Abscess Disposition: HOME SELF-CARE Condition: Fair Instructions (If sedation given, give patient instructions): Abscess Incision and Drainage (ED), Bartholin Cyst (ED), Incision and Drainage (ED) Prescriptions: Amoxic-Pot Clav 875-125Mg [Augmentin 875-125] 1 tab PO Q12HR #20 tablet clindamycin HCL [Cleocin] 300 mg PO Q6HR #40 cap Is patient prescribed a controlled substance at d/c from ED?: No Referrals: Joceline Gant DO [Doctor of Osteopathic Medicine] - 1-2 days
== END 2021-05-31 04:27 | disposition home or self-care (01) ==
LOC: EC 02:42
DX: L02.214 Cutaneous abscess of groin (principal); N75.0 Cyst of Bartholin's gland; Z79.84 Long term (current) use of oral hypoglycemic drugs; Z88.1 Allergy status to other antibiotic agents; Z88.2 Allergy status to sulfonamides
CPT/HCPCS: 56420; 99282

== ENCOUNTER → 2021-08-02 | Outpatient (CLI) | payer MEDICAID ==
[2021-08-02 14:20] LABS: Basophils # (A) 0.05 X 10*3/uL (0.00-0.10); Basophils % (A) 0.9 %; Eosinophils # (A) 0.09 X 10*3/uL (0.04-0.35); Eosinophils % (A) 1.6 %; HCT 36.6 % (37.2-46.3); HGB 11.2 g/dL (12.0-15.0); Lymphocytes # (A) 1.76 X 10*3/uL (0.90-5.00); Lymphocytes % (A) 31.2 %; MCH 25.6 pg (27.0-32.0); MCHC 30.6 g/dL (32.0-37.0); MCV 83.6 fL (80.0-97.0); Mean Platelet Volume 10.7 fL (9.5-12.2); Monocytes # (A) 0.42 X 10*3/uL (0.20-1.00); Monocytes % (A) 7.4 %; Neutrophils # (A) 3.31 X 10*3/uL (1.80-7.70); Neutrophils % (A) 58.7 %; Platelet Count 376 X 10*3/uL (140-440); RBC 4.38 X 10*6/uL (4.10-5.20); RDW 15.4 % (11.5-14.5); WBC 5.64 X 10*3/uL (4.50-10.00)
[2021-08-02 14:54] LABS: ALT 31 U/L (8-44); AST 31 U/L (13-35); African American GFR (CKD) 131.5 (60.0-200.0); Albumin 4.5 g/dL (3.8-4.9); Albumin/Globulin Ratio 1.46 (1.60-3.17); Alkaline Phosphatase 71 U/L (41-126); Bilirubin, Conjugated <0.20 mg/dL (0.20-0.40); Globulin 3.1 g/dL (1.6-3.3); Non-African American GFR(CKD) 113.5 (60.0-200.0); Total Protein 7.6 g/dL (6.2-8.2)
== END | disposition home or self-care (01) ==
LOC: LABWHC1 08:21
PROVIDERS: ATTEND Internal Medicine
DX: Z51.81 Encounter for therapeutic drug level monitoring (principal); M33.90 Dermatopolymyositis, unspecified, organ involvement unspecified; D84.9 Immunodeficiency, unspecified
CPT/HCPCS: 36415; 80076; 82565; 85025

== ENCOUNTER → 2021-11-16 | Outpatient (CLI) | payer MEDICAID ==
--- NOTE | 2021-11-16 15:42 | US ---
EXAMINATION TYPE: US mass soft tissue chest/back DATE OF EXAM: 11/16/2021 COMPARISON: NONE CLINICAL HISTORY: 31-year-old female with right flank mass R22.2. Patient states visible difference i n right flank area. No palpable. No injury. TECHNIQUE: Pulp Grinder notes: Area of concern scanned at right lateral flank/posterior back. Contral ateral images taken. FINDINGS: Pulp Grinder notes: No discrete mass, lesion, or fluid collection identified. Images demonstrate the subcutaneous soft tissue layer to a depth of up to 6 cm. IMPRESSION: Targeted scanning along the right lateral flank and posterior back at the patient's site of concern s hows no discrete sonographic abnormality of the superficial tissues. Clinical follow-up is recommende d. If any enlarging palpable abnormality is encountered, the area can be rescanned.
== END | disposition home or self-care (01) ==
LOC: RADUSWWP 12:24
PROVIDERS: ATTEND Family Medicine
DX: R22.2 Localized swelling, mass and lump, trunk (principal)

== ENCOUNTER → 2023-03-01 | Outpatient (CLI) | payer MEDICAID ==
[2023-03-02 02:04] LABS: ALT 36 U/L (8-49); AST 28 U/L (13-35); Albumin 4.4 d/dL (3.8-4.9); Albumin/Globulin Ratio 1.52 Ratio (1.60-3.17); Alkaline Phosphatase 78 U/L (41-126); Bilirubin, Conjugated <0.20 mg/dL (0.20-0.40); Bilirubin,Unconjugated >0.10 mg/dL (0.20-1.00); Globulin 2.9 d/dL (1.6-3.3); Total Bilirubin 0.3 mg/dL (0.3-1.2); Total Protein 7.3 d/dL (6.2-8.2)
[2023-03-02 02:10] LABS: Basophils # (A) 0.03 X 10*3/uL (0.00-0.10); Basophils % (A) 0.7 %; Eosinophils # (A) 0.13 X 10*3/uL (0.04-0.35); Eosinophils % (A) 2.9 %; HCT 39.3 % (37.2-50.0); HGB 12.5 d/dL (12.0-15.0); Lymphocytes # (A) 1.37 X 10*3/uL (0.90-5.00); Lymphocytes % (A) 30.9 %; MCH 26.8 pg (27.0-32.0); MCHC 31.8 d/dL (32.0-37.0); MCV 84.2 FL (80.0-97.0); Mean Platelet Volume 10.6 FL (9.5-12.2); Monocytes # (A) 0.36 X 10*3/uL (0.20-1.00); Monocytes % (A) 8.1 %; NRBC Per 100 WBC 0 X 10*3/uL (0.00-0.01); Neutrophils # (A) 2.54 X 10*3/uL (1.80-7.70); Neutrophils % (A) 57.2 %; Platelet Count 379 X 10*3/uL (140-440); RBC 4.67 X 10*6/uL (4.10-5.60); RDW 14.7 % (11.5-14.5); WBC 4.44 X 10*3/uL (4.50-10.00)
== END | disposition home or self-care (01) ==
LOC: LABWHC1 16:12
PROVIDERS: ATTEND Internal Medicine
DX: Z51.81 Encounter for therapeutic drug level monitoring (principal); M33.90 Dermatopolymyositis, unspecified, organ involvement unspecified
CPT/HCPCS: 36415; 80076; 82565; 85025

== ENCOUNTER → 2023-05-22 | Outpatient (CLI) | payer MEDICAID ==
[2023-05-22 15:25] LABS: Basophils # (A) 0.04 X 10*3/uL (0.00-0.10); Eosinophils # (A) 0.08 X 10*3/uL (0.04-0.35); Eosinophils % (A) 2.1 %; HCT 39.4 % (37.2-50.0); HGB 12.9 d/dL (12.0-17.0); Lymphocytes # (A) 1.66 X 10*3/uL (0.90-5.00); MCH 27.1 pg (27.0-32.0); MCHC 32.7 d/dL (32.0-37.0); MCV 82.8 FL (80.0-97.0); Mean Platelet Volume 10.8 FL (9.5-12.2); Monocytes % (A) 7.8 %; NRBC Per 100 WBC 0 X 10*3/uL (0.00-0.01); Neutrophils # (A) 1.77 X 10*3/uL (1.80-7.70); Neutrophils % (A) 45.8 %; Platelet Count 318 X 10*3/uL (140-440); RBC 4.76 X 10*6/uL (4.10-5.60); WBC 3.86 X 10*3/uL (4.50-10.00)
[2023-05-22 15:38] LABS: ALT 22 U/L (8-49); AST 29 U/L (13-35); Albumin 4.4 d/dL (3.8-4.9); Albumin/Globulin Ratio 1.33 Ratio (1.60-3.17); Alkaline Phosphatase 66 U/L (41-126); Bilirubin, Conjugated <0.20 mg/dL (0.20-0.40); Bilirubin,Unconjugated >0 mg/dL (0.20-1.00); Creatine Kinase 80 U/L (26-257); Globulin 3.3 d/dL (1.6-3.3); Lipase 64 U/L (14-63); Total Bilirubin 0.2 mg/dL (0.3-1.2); Total Protein 7.7 d/dL (6.2-8.2)
== END | disposition home or self-care (01) ==
LOC: LABWHC1 10:13
PROVIDERS: ATTEND Internal Medicine
DX: Z51.81 Encounter for therapeutic drug level monitoring (principal); M33.90 Dermatopolymyositis, unspecified, organ involvement unspecified
CPT/HCPCS: 36415; 80076; 82550; 82565; 83690; 84443; 85025

== ENCOUNTER → 2023-08-18 | Outpatient (CLI) | payer MEDICAID ==
[2023-08-18 16:00] LABS: Amylase 75 U/L (23-121); Blood Urea Nitrogen 13.8 mg/dL (9.0-27.0); Creatine Kinase 108 U/L (26-257); LDH 188 U/L (120-246); Lipase 46 U/L (14-63); Phosphorus 3.7 mg/dL (2.4-5.1)
[2023-08-18 16:01] LABS: ALT 46 U/L (8-49); AST 42 U/L (13-35); Alkaline Phosphatase 88 U/L (41-126); Calcium 9.7 mg/dL (8.7-10.3)
[2023-08-18 16:52] LABS: Basophils # (A) 0.04 X 10*3/uL (0.00-0.10); Basophils % (A) 0.7 %; Eosinophils # (A) 0.04 X 10*3/uL (0.04-0.35); Eosinophils % (A) 0.7 %; HCT 39.6 % (37.2-50.0); HGB 12.5 g/dL (12.0-17.0); Lymphocytes # (A) 1.93 X 10*3/uL (0.90-5.00); Lymphocytes % (A) 31.7 %; MCH 26.7 pg (27.0-32.0); MCHC 31.6 g/dL (32.0-37.0); MCV 84.4 FL (80.0-97.0); Mean Platelet Volume 10.8 FL (9.5-12.2); Monocytes # (A) 0.39 X 10*3/uL (0.20-1.00); Monocytes % (A) 6.4 %; NRBC Per 100 WBC 0 X 10*3/uL (0.00-0.01); Neutrophils # (A) 3.68 X 10*3/uL (1.80-7.70); Neutrophils % (A) 60.3 %; Platelet Count 351 X 10*3/uL (140-440); RBC 4.69 X 10*6/uL (4.10-5.60); WBC 6.09 X 10*3/uL (4.50-10.00)
[2023-08-18 17:59] LABS: Anti-DNA, DS unit <1.0 IU/mL; DNA Double-Stranded Negative (Negative)
== END | disposition home or self-care (01) ==
LOC: LABWHC1 08:13
PROVIDERS: ATTEND Dermatology
DX: M79.3 Panniculitis, unspecified (principal)
CPT/HCPCS: 36415; 82085; 82150; 82306; 82310; 82550; 82565; 83615; 83690; 83970; 84075; 84100; 84450; 84460; 84520; 85025; 86038; 86225